=== PATIENT | male | born 1985 | race Caucasian/White ===

== ENCOUNTER 2024-05-30 12:48 | Emergency (ER) | payer SELFPAY ==
[~2024-05-30] VITALS: Ht 165.1 cm; Wt 81.6 kg
[~2024-05-30 12:48] MED LIST: PENICILLIN-VK500 M1 PO; ULTRAM50 MG PO
[2024-05-30] MEDS ORDERED: VENT7GM INH (14:22)
== END 2024-05-30 14:41 | disposition home or self-care (01) ==
LOC: ED 12:48
DX: J06.9 Acute upper respiratory infection, unspecified (principal); Z88.0 Allergy status to penicillin; Z88.8 Allergy status to other drugs, medicaments and biological substances